=== PATIENT | female | born 1985 | race Two or more races ===

== ENCOUNTER 2022-03-01 14:15 | Inpatient (IN) | payer MEDICAID ==
[~2022-03-01] VITALS: Ht 162.6 cm; Wt 61.9 kg
[2022-03-01] MEDS ORDERED: ESCI-8 PO (15:23)
[2022-03-01] MEDS ORDERED: TRAZ-252 PO (15:24)
[2022-03-01] MEDS ORDERED: ALPR-707 PO (15:25)
[2022-03-01 22:00] VITALS: BP 99/66
[2022-03-01] MEDS ORDERED: ZOLPIDEM TARTRATE 10 MG TABLET PO PRN (23:45)
[2022-03-02] MEDS ORDERED: CloNIDine HCL 0.1 MG TABLET PO PRN (07:15)
[2022-03-02] MEDS ORDERED: MAG HYDROX/AL HYDROX/SIMETH ES 30 ML SUSPENSION UDCUP PO PRN (07:15)
[2022-03-02] MEDS ORDERED: GuaiFENesin/D-METHORPHAN [SUGAR-FREE] 200-20MG/10 ML SYRUP UDCUP PO PRN (07:15)
[2022-03-02] MEDS ORDERED: MAGNESIUM HYDROXIDE SUSPENSION 30 ML UDCUP PO PRN (07:15)
[2022-03-02] MEDS ORDERED: NICOTINE 14 MG/24 HOUR PATCH TD PRN (07:15)
[2022-03-02] MEDS ORDERED: ONDANSETRON HCL 4 MG TABLET PO PRN (07:15)
[2022-03-02] MEDS ORDERED: DOCUSATE SODIUM 100 MG CAPSULE PO PRN (07:15)
[2022-03-02] MEDS ORDERED: PETROLATUM,WHITE 28 GM JELLY TP PRN (07:15)
[2022-03-02] MEDS ORDERED: ALBUTEROL SULFATE HFA 90 MCG/PUFF 8 GM INHALER IH PRN (07:15)
[2022-03-02] MEDS ORDERED: ACETAMINOPHEN 325 MG TABLET PO PRN (07:15)
[2022-03-02 07:27] LABS: BASOPHILS % (AUTO) 0.6 % (0.0-2.0); HEMATOCRIT 36.5 % (36-46); HEMOGLOBIN 12.1 g/dL (12.0-16.0); LYMPHOCYTES # (AUTO) 2.4 K/uL (1.0-4.8); MEAN CORPUSCULAR HEMOGLOBIN 28.2 pg (26.0-34.0); MEAN CORPUSCULAR HGB CONC 33.1 G/dL (31.0-37.0); MEAN CORPUSCULAR VOLUME 85 fL (80-100); MONOCYTES # (AUTO) 0.6 K/uL (0.1-1.0); MONOCYTES % (AUTO) 9.9 % (2.0-9.0); NEUTROPHILS # (AUTO) 2.9 K/uL (1.8-7.7); NEUTROPHILS % (AUTO) 48.5 % (40.0-70.0); PLATELET COUNT (AUTO) 271 K/uL (150-450); RED BLOOD CELL COUNT(AUTO) 4.29 MIL/uL (4.00-5.20); RED CELL DISTRIBUTION WIDTH 12.9 % (11.5-14.5)
[2022-03-02 07:50] LABS: ALANINE AMINOTRANSFERASE 16 U/L (12-78); ALBUMIN 2.7 g/dL (3.4-5.0); ALKALINE PHOSPHATASE 71 U/L (46-116); ANION GAP 3 mmol/L (8-16); ASPARTATE AMINOTRANSFERASE 17 U/L (15-37); BILIRUBIN,TOTAL 0.2 mg/dL (0.1-1.0); CALCIUM, TOTAL 8.2 mg/dL (8.8-10.5); CARBON DIOXIDE 31 mmol/L (22-29); CHLORIDE 105 mmol/L (98-107); CHOL/HDL RATIO 5.1 (3.9-5.7); CHOLESTEROL 132 mg/dL (131-200); CREATININE 0.68 mg/dL (0.60-1.30); GLUCOSE,RANDOM 87 mg/dL (70-110); HCG,QUANTITATIVE < 1 mIU/mL (0-6); HDL CHOLESTEROL 26 mg/dL (40-60); LDL CHOL (CALC.) 83 mg/dL (0-130); SODIUM SERUM 139 mmol/L (136-145); TOTAL PROTEIN, SERUM 5.9 g/dL (6.4-8.2); TRIGLYCERIDES 116 mg/dL (15-150); UREA NITROGEN, BLOOD 14 mg/dL (7-18)
[2022-03-02 07:51] LABS: GLOMERULAR FILTR. RATE CALC > 60 mL/min (>60)
[2022-03-02 08:07] LABS: APPEARANCE,URINE HAZY (CLEAR); BILIRUBIN,URINE NEGATIVE (NEGATIVE); GLUCOSE, URINE (UA) NEGATIVE (NEGATIVE); KETONES,URINE NEGATIVE (NEGATIVE); LEUKOCYTE ESTERASE ,URINE SMALL (NEGATIVE); NITRATE,URINE NEGATIVE (NEGATIVE); OCCULT BLOOD,URINE NEGATIVE (NEGATIVE); PH,URINE 6.5 (5.0-8.0); PROTEIN,URINE NEGATIVE (NEGATIVE); UROBILINOGEN,URINE <=1.0 mg/dL (<=1.0)
[2022-03-02 08:12] LABS: AMPHET/METH SCREEN,URINE POSITIVE (NEGATIVE); BARBITURATE SCREEN, URINE NEGATIVE (NEGATIVE); BENZODIAZEPINES SCREEN,URINE POSITIVE (NEGATIVE); CANNABINOID SCREEN,URINE NEGATIVE (NEGATIVE); COCAINE SCREEN,URINE NEGATIVE (NEGATIVE); METHADONE SCREEN, URINE NEGATIVE (NEGATIVE); OPIATE SCREEN,URINE POSITIVE (NEGATIVE)
[2022-03-02 08:15] LABS: PHENCYCLIDINE SCREEN,URINE NEGATIVE (NEGATIVE)
[2022-03-02 08:30] VITALS: BP 124/76
[2022-03-02 08:44] LABS: BACTERIA,URINE Many /HPF (None Seen); RBC,URINE 0-2 /HPF (0-2); SQUAMOUS EPITHELIAL CELL,UR Many /LPF (None Seen)
[2022-03-02] MEDS: ESCITALOPRAM OXALATE 10 MG TABLET PO SCH (09:45)
[2022-03-02] MEDS: LORazepam 2 MG TABLET PO PRN ×2 (10:19→16:46)
[2022-03-02] MEDS: TraZODone HCL 50 MG TABLET PO SCH (21:06)
[2022-03-03 09:19] VITALS: BP 110/55
[2022-03-03] MEDS: LORazepam 2 MG TABLET PO PRN ×2 (09:19→14:04)
[2022-03-03] MEDS: ESCITALOPRAM OXALATE 10 MG TABLET PO SCH (09:19)
[2022-03-03 16:13] VITALS: BP 116/62
[2022-03-03] MEDS ORDERED: LORazepam 2 MG TABLET PO PRN (17:45)
[2022-03-03] MEDS: TraZODone HCL 50 MG TABLET PO SCH (20:28)
[2022-03-04] MEDS: ESCITALOPRAM OXALATE 10 MG TABLET PO SCH (08:51)
[2022-03-04 09:00] VITALS: BP 98/61
[2022-03-04 16:59] VITALS: BP 105/62
[2022-03-04] MEDS: TraZODone HCL 50 MG TABLET PO SCH (20:22)
[2022-03-05 08:00] VITALS: BP 82/57
[2022-03-05] MEDS: ESCITALOPRAM OXALATE 10 MG TABLET PO SCH (10:25)
[2022-03-05] MEDS: HALOPERIDOL 5 MG TABLET PO PRN (16:25)
[2022-03-05 16:46] VITALS: BP 108/90
[2022-03-05] MEDS: IBUPROFEN 400 MG TABLET PO PRN (16:46)
[2022-03-05 17:46] VITALS: BP 105/86
[2022-03-05] MEDS: TraZODone HCL 50 MG TABLET PO SCH (20:30)
[2022-03-06 07:58] LABS: COVID AG,FIA SOURCE NASAL SWAB
[2022-03-06 08:00] VITALS: BP 97/61
[2022-03-06] MEDS: ESCITALOPRAM OXALATE 10 MG TABLET PO SCH (11:15)
[2022-03-06] MEDS: HALOPERIDOL 5 MG TABLET PO PRN (11:15)
[2022-03-06 11:58] VITALS: BP 102/68
[2022-03-06] MEDS: IBUPROFEN 400 MG TABLET PO PRN (11:58)
[2022-03-06 12:58] VITALS: BP 101/71
[2022-03-06] MEDS: NITROFURANTOIN MONOHYD/M-CRYST 100 MG CAPSULE [MACROBID] PO SCH (16:39)
[2022-03-06 16:42] VITALS: BP 122/76
[2022-03-06] MEDS: TraZODone HCL 50 MG TABLET PO SCH (20:14)
[2022-03-07 07:44] VITALS: BP 116/67
[2022-03-07] MEDS: IBUPROFEN 400 MG TABLET PO PRN ×2 (07:44→16:40)
[2022-03-07] MEDS: ESCITALOPRAM OXALATE 10 MG TABLET PO SCH (07:44)
[2022-03-07] MEDS: NITROFURANTOIN MONOHYD/M-CRYST 100 MG CAPSULE [MACROBID] PO SCH ×2 (07:57→16:40)
[2022-03-07 08:44] VITALS: BP 115/71
[2022-03-07 16:41] VITALS: BP 126/88
[2022-03-07 17:40] VITALS: BP 118/78
[2022-03-07] MEDS: TraZODone HCL 50 MG TABLET PO SCH (20:51)
[2022-03-08] MEDS: ESCITALOPRAM OXALATE 10 MG TABLET PO SCH (08:21)
[2022-03-08] MEDS: NITROFURANTOIN MONOHYD/M-CRYST 100 MG CAPSULE [MACROBID] PO SCH ×2 (08:21→16:07)
[2022-03-08] MEDS: QUEtiapine FUMARATE 25 MG TABLET PO PRN ×2 (08:21→15:43)
[2022-03-08 09:30] VITALS: BP 105/61
[2022-03-08 16:53] VITALS: BP 91/55
[2022-03-08] MEDS: TraZODone HCL 50 MG TABLET PO SCH (20:25)
[2022-03-09] MEDS: NITROFURANTOIN MONOHYD/M-CRYST 100 MG CAPSULE [MACROBID] PO SCH ×2 (08:24→16:15)
[2022-03-09] MEDS: ESCITALOPRAM OXALATE 10 MG TABLET PO SCH (08:24)
[2022-03-09] MEDS: QUEtiapine FUMARATE 25 MG TABLET PO PRN ×2 (08:49→15:10)
[2022-03-09 08:50] VITALS: BP 93/62
[2022-03-09 11:44] VITALS: BP 89/65
[2022-03-09 16:45] VITALS: BP 90/71
[2022-03-09] MEDS: TraZODone HCL 50 MG TABLET PO SCH (20:29)
[2022-03-10 08:00] VITALS: BP 94/61
[2022-03-10] MEDS: ESCITALOPRAM OXALATE 10 MG TABLET PO SCH (08:14)
[2022-03-10] MEDS: NITROFURANTOIN MONOHYD/M-CRYST 100 MG CAPSULE [MACROBID] PO SCH ×2 (08:14→16:12)
[2022-03-10] MEDS: QUEtiapine FUMARATE 25 MG TABLET PO PRN ×2 (08:14→23:23)
[2022-03-10 16:00] VITALS: BP 104/73
[2022-03-10] MEDS: TraZODone HCL 50 MG TABLET PO SCH (20:09)
[2022-03-11 01:00] VITALS: BP 106/68
[2022-03-11] MEDS: NITROFURANTOIN MONOHYD/M-CRYST 100 MG CAPSULE [MACROBID] PO SCH ×2 (08:03→17:11)
[2022-03-11] MEDS: QUEtiapine FUMARATE 25 MG TABLET PO PRN ×3 (08:03→14:03)
[2022-03-11] MEDS: ESCITALOPRAM OXALATE 10 MG TABLET PO SCH (08:03)
[2022-03-11 08:43] VITALS: BP 114/66
[2022-03-11] MEDS ORDERED: HALOPERIDOL LACTATE 5 MG/ML VIAL IM ONE (09:30)
[2022-03-11] MEDS ORDERED: DiphenhydrAMINE HCL 50 MG/ML VIAL IM ONE (09:30)
[2022-03-11 16:00] VITALS: BP 108/74
[2022-03-11] MEDS: TraZODone HCL 50 MG TABLET PO SCH (20:34)
[2022-03-12] MEDS: ESCITALOPRAM OXALATE 10 MG TABLET PO SCH (08:18)
[2022-03-12] MEDS: QUEtiapine FUMARATE 25 MG TABLET PO PRN ×2 (08:18→14:43)
[2022-03-12 09:32] VITALS: BP 114/73
[2022-03-12] MEDS: TraZODone HCL 50 MG TABLET PO SCH (21:19)
[2022-03-13] MEDS: LOPERAMIDE HCL 2 MG CAPSULE PO PRN ×2 (06:15→15:51)
[2022-03-13 07:30] LABS: COVID AG,FIA SOURCE NASAL SWAB
[2022-03-13 08:01] VITALS: BP 115/63
[2022-03-13] MEDS: IBUPROFEN 400 MG TABLET PO PRN (08:01)
[2022-03-13] MEDS: ESCITALOPRAM OXALATE 10 MG TABLET PO SCH (08:01)
[2022-03-13] MEDS: QUEtiapine FUMARATE 25 MG TABLET PO PRN ×2 (08:02→15:52)
[2022-03-13 08:26] VITALS: BP 109/58
[2022-03-13 16:00] VITALS: BP 115/72
[2022-03-13] MEDS: TraZODone HCL 50 MG TABLET PO SCH (20:58)
[2022-03-14] MEDS: LOPERAMIDE HCL 2 MG CAPSULE PO PRN ×2 (07:18→14:05)
[2022-03-14 08:25] VITALS: BP 99/64
[2022-03-14] MEDS: ESCITALOPRAM OXALATE 10 MG TABLET PO SCH (08:46)
[2022-03-14] MEDS: QUEtiapine FUMARATE 25 MG TABLET PO PRN (08:49)
[2022-03-14 16:06] VITALS: BP 101/50
[2022-03-14] MEDS: IBUPROFEN 400 MG TABLET PO PRN (17:40)
[2022-03-14] MEDS: TraZODone HCL 50 MG TABLET PO SCH (20:27)
[2022-03-15] MEDS: LOPERAMIDE HCL 2 MG CAPSULE PO PRN (06:22)
[2022-03-15] MEDS: QUEtiapine FUMARATE 25 MG TABLET PO PRN (08:23)
[2022-03-15] MEDS: ESCITALOPRAM OXALATE 10 MG TABLET PO SCH (08:23)
[2022-03-15 09:27] VITALS: BP 103/61
[2022-03-15 12:56] VITALS: BP 115/76
[2022-03-15] MEDS: IBUPROFEN 400 MG TABLET PO PRN (12:56)
[2022-03-15 16:30] VITALS: BP 112/63
[2022-03-15] MEDS: TraZODone HCL 50 MG TABLET PO SCH (20:57)
[2022-03-16] MEDS ORDERED: TRAZ-252 PO (03:39)
[2022-03-16] MEDS ORDERED: ESCI10 PO (03:39)
[2022-03-16] MEDS: ESCITALOPRAM OXALATE 10 MG TABLET PO SCH (08:05)
== END 2022-03-16 08:20 | disposition home or self-care (01) | DRG 751 ==
LOC: UNDOADMIN 21:45 → 3EI 21:45
PROVIDERS: ADMIT Psychiatry & Neurology Child & Adolescent Psychiatry; ATTEND Psychiatry & Neurology Child & Adolescent Psychiatry
DX: F33.2 Major depressive disorder, recurrent severe without psychotic features (principal); R45.851 Suicidal ideations; F15.10 Other stimulant abuse, uncomplicated; F41.9 Anxiety disorder, unspecified; N39.0 Urinary tract infection, site not specified; Z20.822 Contact with and (suspected) exposure to COVID-19; Z79.899 Other long term (current) drug therapy; Z59.00 Homelessness unspecified
CPT/HCPCS: 80053; 80061; 80307; 81001; 84443; 84702; 84703; 85025; 87081; 87086; 87186; J1200; J1630